=== PATIENT | male | born 1960 | race Two or more races ===

== ENCOUNTER 2016-11-05 07:26 | Day surgery (SDC) | payer OTHER ==
[2016-10-23 12:08] VITALS: BMI 23.5
[2016-11-05] MEDS ORDERED: PROPOFOL 20 ML ONE ×2 (07:29)
[2016-11-05] MEDS ORDERED: LIDOCAINE HCL/PF 2% SDV 5ML VIAL ONE (07:29)
[2016-11-05] MEDS ORDERED: AMPICILLIN 2 GM/100 ML BAG (PRE-DOCKED) IVPB ONE (07:30)
[2016-11-05] MEDS ORDERED: GENTAMICIN SO4 80 MG/2 ML VIAL IVPB ONE (07:45)
[2016-11-05 09:17] VITALS: TEMP 97.4
[2016-11-05 09:33] VITALS: BP 102/65; PULSE 59
--- NOTE | 2016-11-09 11:22 | PATH ---
Surgical Pathology Report Patient Name: CARLOS ALBERTO RUBIN [facility]. Rec. #: [id number] /Age/Gender: 1960 (Age: 55) / M Account: [id number] Location: [facility]-ENDOSCOPY Taken: 11/05/2016 Received: 11/05/2016 Reported: 11/09/2016 Physicians: Schuyler Luevano M.D. Specimen(s) Received A: BX DUODENUM B: BX ANTRUM C: BX SIGMOID Clinical History Peptic ulcer disease, family history of colon cancer Gastritis, rule out celiac disease, rule out H. Pylori, colonic polyp Final Diagnosis A. DUODENUM, BIOPSY: DUODENAL MUCOSA WITH NO PATHOLOGIC CHANGES. NO HISTOLOGIC EVIDENCE OF GLUTEN SENSITIVE ENTEROPATHY (CELIAC SPRUE) IDENTIFIED. B. STOMACH, ANTRUM, BIOPSY: FOCAL MILD CHRONIC GASTRITIS. IMMUNOSTAIN FOR H. PYLORI IS NEGATIVE. C. COLON, SIGMOID, BIOPSY: TUBULAR ADENOMA. Electronically Signed Mohinder Shine M.D. Gross Description A. Received in formalin, labeled "duodenum" is a hercules, irregular portion of soft tissue measuring 0.4 cm. in greatest dimension. The specimen is submitted in toto in one cassette. B. Received in formalin, labeled "antrum" is a hercules, irregular portion of soft tissue measuring 0.7 cm. in greatest dimension. The specimen is submitted in toto in one cassette. C. Received in formalin, labeled "sigmoid" is a hercules, irregular portion of soft tissue measuring 0.6 cm. in greatest dimension. The specimen is submitted in toto in one cassette. 11/06/2016 saudi11/06/2016
== END 2016-11-05 09:55 | disposition home or self-care (01) ==
LOC: EDSEX 07:26 → MERGE 07:26 → FASU-ENDO 07:26
PROVIDERS: ATTEND Internal Medicine Gastroenterology
PROC: 0DB68ZX Excision of Stomach, Via Natural or Artificial Opening Endoscopic, Diagnostic (ICD-10-PCS; 2016-11-05)
PROC: 0DBN8ZX Excision of Sigmoid Colon, Via Natural or Artificial Opening Endoscopic, Diagnostic (ICD-10-PCS; principal; 2016-11-05 08:26)
PROC: 0DB98ZX Excision of Duodenum, Via Natural or Artificial Opening Endoscopic, Diagnostic (ICD-10-PCS; 2016-11-05 08:26)
DX: Z12.11 Encounter for screening for malignant neoplasm of colon (principal); Z80.0 Family history of malignant neoplasm of digestive organs; D12.5 Benign neoplasm of sigmoid colon; K29.50 Unspecified chronic gastritis without bleeding; K20.9 Esophagitis, unspecified
CPT/HCPCS: 88305-TC; 88342-TC

== ENCOUNTER 2020-02-19 11:36 | Emergency (ER) | payer OTHER ==
--- NOTE | 2020-02-19 11:48 | TELE ---
HPI Do you have fever,cough or shortness of breath?: No - General Reason For Visit: COVID TEST History Source: Patient Past History - Medical History Allergies/Adverse Reactions: Allergies Allergy/AdvReac Type Severity Reaction Status Date / Time No Known Drug Allergies Allergy Verified 11/04/15 07:28 seasonal allergies Allergy Uncoded 11/04/15 07:28 Home Medications: Ambulatory Orders Lamotrigine [Lamictal] 200 mg PO DAILY 04/29/14 Losartan Potassium [Cozaar] 200 mg PO DAILY 04/29/14 Simvastatin [Zocor -] 20 mg PO HS 05/07/15 Warfarin Sodium [Coumadin] 5 mg PO ASDIR 05/07/15 Oxycodone HCl/Acetaminophen [Percocet 5-325 mg Tablet] 1 - 2 tab PO Q4H PRN #15 tablet MDD 6 11/04/15 Amlodipine Besylate 5 mg PO DAILY tablet 06/09/16 Ranitidine HCl 150 mg PO DAILY PRN tablet 06/09/16 Amlodipine Besylate [Norvasc -] 2.5 mg PO DAILY 10/23/16 Lamotrigine [Lamictal] 200 mg PO DAILY 10/23/16 Losartan Potassium [Cozaar] 100 mg PO DAILY 10/23/16 Simvastatin 20 mg PO HS 10/23/16 Warfarin Sodium 5 mg PO ASDIR 10/23/16 Warfarin Sodium 7.5 mg PO ASDIR 10/23/16 Anemia: No Asthma: No Cancer: No Cardiac Disorders: Yes (Aortic valve replaced) CVA: No COPD: No CHF: No Diabetes: No GI Disorders: No Disorders: No HTN: Yes Hypercholesterolemia: Yes Liver Disease: No Psychiatric Problems: Yes Seizures: Yes Thyroid Disease: No - Surgical History Abdominal Surgery: No Appendectomy: No Cardiac Surgery: Yes (AVR) Cholecystectomy: No Lung Surgery: No Neurologic Surgery: No Orthopedic Surgery: Yes (ACL repair-R) - Psycho-Social/Smoking History Smoking History: Never smoked Have you smoked in the past 12 months: No Review of Systems - Review of Systems Able to Perform ROS?: Yes Constitutional: No: Fever HEENTM: Yes: Nose Congestion Respiratory: No: Cough *Physical Exam - Physical Exam Respiratory/Chest: negative: Respiratory Distress Discharge Diagnosis at time of Disposition: Encounter for laboratory testing for COVID-19 virus - Referrals Follow-up Referral(s): Berlin Quiles MD [Primary Care Provider] - - Patient Instructions - Discharge Disposition: HOME Condition at time of Disposition: Stable
== END 2020-02-19 11:49 | disposition home or self-care (01) ==
LOC: JVIRT 11:36
DX: Z11.59 Encounter for screening for other viral diseases (principal)
CPT/HCPCS: Q3014-GT; U0003